=== PATIENT | female | born 1980 | race Two or more races ===

== ENCOUNTER 2025-06-05 21:57 | Emergency (ER) | payer MEDICAID, SELFPAY ==
[2025-06-05 22:01] VITALS: BMI 39.9
[2025-06-05 22:21] VITALS: BP 176/124; BP 185/135; PULSE 87; RESP 18; TEMP 36.9; O2SAT 97
[2025-06-05 23:34] LABS: Basophils # (Auto) 0.1 Thou/mm3 (0.0-0.2); Basophils % (Auto) 1 % (0-2.5); Eosinophils # (Auto) 0.2 Thou/mm3 (0.0-0.5); Eosinophils % (Auto) 2 % (0-10); Hematocrit 43.3 % (36.0-46.0); Hemoglobin 13.8 g/dL (12.0-16.0); Immature Granulocytes Auto 0.04 Thou/mm3 (0.00-0.00); Lymphocytes # (Auto) 3.9 Thou/mm3 (1.0-4.8); Lymphocytes % (Auto) 37 % (10-50); Mean Corpuscular HGB Conc 31.9 g/dl (31.0-37.0); Mean Corpuscular Hemoglobin 26.6 pg (25.0-35.0); Mean Corpuscular Volume 83 fL (80-100); Monocytes # (Auto) 0.7 Thou/mm3 (0.0-0.8); Monocytes % (Auto) 7 % (0-12); Neutrophils # (Auto) 5.6 Thou/mm3 (1.8-7.7); Neutrophils % (Auto) 53 % (37-80); Nucleated Red Blood Cell # 0.00 Thou/mm3 (0.00-0.00); Nucleated Red Blood Cell % 0 /100 WBC (0); Platelet Count 257 Thou/mm3 (140-440); RDW Standard Deviation 42.1 fL (36.4-46.3); Red Blood Count 5.19 Miln/mm3 (4.00-5.20); White Blood Count 10.6 Thou/mm3 (3.6-11.0)
[2025-06-05] MEDS: ONDANSETRON ODT 4 MG TABRAP PO (23:38)
--- NOTE | 2025-06-06 | XR_ITS ---
Examination: Abdomen sonogram, complete Date and time of exam: June 06, 2025 0052 hours INDICATIONS: Right upper abdominal pain beginning 3 days ago. Technique: Multiple real-time grayscale transabdominal sonographic images of the abdomen have been obtained. Findings: Absent gallbladder Normal common bile duct 0.3 cm Pancreatic head 2.6 cm Aorta not enlarged. Liver 20.3 cm fatty infiltration lobular contour Normal hepatopedal portal venous oh Patent IVC Right kidney 12.0 cm cortex 1.5 cm Left kidney 11.3 cm cortex 2.4 cm No hydronephrosis Spleen 10.7 cm IMPRESSION: Normal common bile duct Moderate hepatomegaly fatty infiltration, primary hepatocellular disease, no focal liver lesions
[2025-06-06 00:20] LABS: Alanine Aminotransferase 23 U/L (10-49); Albumin, Serum 4.6 gm/dL (3.5-5.0); Albumin/Globulin Ratio 1.4 (1.2-2.2); Alkaline Phosphatase 79 U/L (46-116); Amylase 33 U/L (30-118); Anion Gap 9 (7-16); Aspartate Amino Transferase 23 U/L (0-34); BUN/Creatinine Ratio 11 Ratio (12-20); Bilirubin,Total 0.8 mg/dL (0.3-1.2); Blood Urea Nitrogen 9 mg/dL (9-23); Calcium 10.2 mg/dL (8.3-10.6); Calcium (Corrected) 10.2 mg/dL (8.5-10.1); Carbon Dioxide 30.1 mMol/L (20.0-31.0); Chloride 105 mMol/L (98-107); Creatinine (Component) 0.8 mg/dL (0.6-1.3); Estimated Creatinine Clearance 107.8 mL/min (>60); Globulin 3.2 gm/dL (2.3-3.5); Glucose 114 mg/dL (74-106); Lipase 34 U/L (12-53); Magnesium 1.8 mg/dL (1.6-2.6); Osmolality,Calculated 286 (275-295); Phosphorous 3.3 mg/dL (2.4-5.1); Potassium 3.5 mMol/L (3.4-5.1); Sodium 144 mMol/L (136-145); Total Protein 7.8 gm/dL (5.7-8.2); eGFR > 60 See Note
--- NOTE | 2025-06-06 01:54 | PRELIM_ITS ---
Ultrasound Abdomen. June 06, 2025 0052 hours Clinical history: Abdominal Pain RUQ, Hx of Cholecystectomy Technique: Grayscale and color flow images of the abdomen are provided. Hepatic and portal veins were also imaged with color flow images. Comparison: No prior study is available for comparison. Findings: The liver is moderately enlarged, measuring 20.2 cm and demonstrates increased echogenicity. There is mild lobulated contour of the liver. No intrahepatic biliary ductal dilatation. The main portal vein is patent and demonstrates hepatopetal flow. The hepatic veins are patent to the extent visualized. The gallbladder is surgically absent. There is no abnormal fluid collection in the gallbladder fossa. The common bile duct is normal in caliber at 3 mm. No free fluid is demonstrated on the submitted images. The pancreas is unremarkable to the extent visualized. The right kidney measures 12 x 4.8 x 5.3 cm. The left kidney measures 11.3 x 4.6 x 4.2 cm. There is no hydronephrosis and the corticomedullary differentiation is maintained. The left kidney demonstrates lobulated contour, likely secondary to parenchymal scarring. The spleen is normal measuring 10.7 cm in length. The abdominal aorta and inferior vena cava to the extent visualized are within normal limits. No free fluid is noted on the submitted images. Impression: Moderate hepatomegaly with fatty infiltration of liver. Mild lobulated contour of the liver, concerning for cirrhosis. Recommend clinical and laboratory correlation. Status post-cholecystectomy without abnormal fluid collection in the gallbladder fossa. Other findings as described above. Report Electronically Signed By: Wang Rodriguez 06/06/2025 1:53:45 AM [EST]
[2025-06-06 02:19] LABS: Collection Type, Urine Clean Catch
[2025-06-06 02:38] LABS: Bacteria,Urine Rare; Bilirubin,Urine Negative (Negative); Blood,Urine Negative (Negative); Calcium Oxalate Crystals,Urine 2+; Clarity,Urine Turbid (Clear/Hazy); Color,Urine Yellow (Lt Yel-Yel); Culture Indicated,Urine Contaminated; Glucose, Urine Negative (Negative); Ketones,Urine Negative (Negative); Leukocyte Esterase,Urine Positive (Negative); Nitrite,Urine Negative (Negative); PH,Urine 6.0 (5.0-7.0); Protein,Urine 1+ (Neg - Trace); RBC,Urine 7 /hpf (0-3); Specific Gravity,Urine 1.025 (1.001-1.035); Squamous Epithelial Cell,Urine 13 /hpf (0-5); Urobilinogen,Urine Negative mg/dL (0.0-1.0); WBC,Urine 12 /hpf (0-5)
--- NOTE | 2025-06-06 02:40 | PD.EDADULT ---
ED General RME/HPI General Chief complaint: General Adult/Misc Complain Stated complaint: R SIDE GROIN PAIN /INJURY Time Seen by Provider: 06/05/25 22:55 Arrival date/time: 06/05/25 21:57 Related Data Home Medications ?Medication ?Instructions ?Recorded ?Confirmed amlodipine 10 mg tablet (Norvasc) 10 mg PO QDAY #0 tabs 04/30/17 01/13/20 aspirin 81 mg tablet,delayed 81 mg PO QDAY ##0 04/30/17 01/13/20 release (Aspir-) furosemide 20 mg tablet (Lasix) 20 mg PO QDAY #0 tabs 04/30/17 01/13/20 lisinopril 40 mg tablet 40 ml PO QDAY #0 tabs 04/30/17 01/13/20 oxybutynin chloride 5 mg tablet 5 mg PO QDAY #0 tabs 04/30/17 01/13/20 potassium chloride 8 mEq 8 meq PO QDAY ##0 04/30/17 01/13/20 capsule,extended release sertraline 100 mg tablet (Zoloft) 100 mg PO HS #0 tabs 04/30/17 01/13/20 Previous Rx's ?Medication ?Instructions ?Recorded albuterol sulfate 90 mcg/actuation 1 - 2 puff inhalation Q6HR PRN 10/24/17 aerosol inhaler (ProAir HFA) WHEEZING #1 inh loratadine 10 mg tablet (Claritin) 1 tab PO QDAY Allergies #30 tabs 10/24/17 cephalexin 500 mg tablet 1,000 mg (2 x 500 mg) PO BID #28 12/02/21 tabs cephalexin 500 mg capsule 500 mg PO BID 5 days #10 caps 06/06/25 Allergies Allergy/AdvReac Type Severity Reaction Status Date / Time No Known Allergies Allergy Verified 06/05/25 22:00 Review of Systems Review of Systems Systems Reviewed: All systems reviewed, normal except as documented Past Medical History Past Medical History CARDIAC: Positive Cardiac Disorders and Hypertension; Negative Congestive Heart Failure RESPIRATORY: Negative Chronic Obstructive Pulmonary Disease (COPD) or Asthma GASTROINTESTINAL: Positive Gastrointestinal Disorders and Gall Bladder Disease GENITOURINARY: Negative Renal Disease ENDOCRINE: Negative Diabetes Mellitus Type 1 or Diabetes Mellitus Type 2 HEMATOLOGIC: Negative Sickle Cell Disease PSYCHO/SOCIAL: Positive Recreational Drug Use, Depression and Anxiety Surgical History SURGICAL: Positive Section Social History SMOKING STATUS: Never smoker ED Exam Narrative Physical exam: A&O, afebrile and non-toxic appearing 44-year-old female, no acute distress. Lungs are clear, RRR, Abdomen is soft, positive tenderness in the right upper quadrant with positive Leahy sign. No right lower quadrant, left lower quadrant or left upper quadrant tenderness. No flank tenderness. No rebound or guarding. Bowel sounds are present. No CVA tenderness. Moves all extremities well. Course Course Course Narrative: Initial blood pressure was 185/135 and 176/124 on both arms. Pulse is 87, respirations 18 and nonlabored, temperature 98.5, O2 sat 97% on room air. CBC reveals a normal white count of 10.6, normal H&H and platelets. CMP reveals normal electrolytes, normal renal function with the exception of a mildly elevated glucose at 114, normal phosphorus and magnesium, normal LFTs. Amylase and lipase are also normal at 33/34. Urinalysis reveals turbid urine with 1+ protein, positive leukocyte esterase, 7 RBCs, 12 WBCs, 13 epithelial cells and 2+ calcium oxalate crystals. Urine drug screen is positive for amphetamines. Abdominal US Reveals: Moderate hepatomegaly with fatty infiltration of liver. Mild lobulated contour of the liver, concerning for cirrhosis. Recommend clinical and laboratory correlation. Status post-cholecystectomy without abnormal fluid collection in the gallbladder fossa. Patient was given metoprolol tartrate 25 mg p.o. x 1 as well as clonidine 0.2 mg p.o. x 1. She was also started on oral antibiotics for her UTI, cephalexin 500 mg p.o. x 1. Quality Measures none Orders Category Date Time Status IV [Insert IV] NOW Care 06/05/25 23:12 Active NPO STAT Care 06/05/25 23:12 Active US abdomen Stat Exams 06/06/25 00:00 Taken Amylase Stat Lab 06/05/25 23:25 Completed CBC Stat Lab 06/05/25 23:25 Completed Comprehensive Metabolic Panel Stat Lab 06/05/25 23:25 Completed Drug Screen,Urine Stat Lab 06/06/25 02:15 Completed Lipase Stat Lab 06/05/25 23:25 Completed Magnesium Stat Lab 06/05/25 23:25 Completed Phosphorous Stat Lab 06/05/25 23:25 Completed Urinalysis, C/S if Indicated Stat Lab 06/06/25 02:15 Completed Metoprolol Tartrate [Lopressor] Med 06/06/25 04:02 Once 25 mg PO X1 ONE Ondansetron Odt [Zofran Odt] Med 06/05/25 23:19 Discontinued 4 mg PO X1 ONE cephALEXin [Keflex] Med 06/06/25 04:02 Once 500 mg PO X1 ONE cloNIDine HCL [Catapres] Med 06/06/25 04:02 Once 0.2 mg PO X1 ONE Vital Signs Vital signs: Vital Signs Temperature 98.5 F 06/05/25 22:21 Pulse Rate 87 06/05/25 22:21 Respiratory Rate 18 06/05/25 22:21 Blood Pressure 185/135 H 06/05/25 22:21 Pulse Oximetry (%) 97 06/05/25 22:21 Oxygen Delivery Method Room Air 06/05/25 22:21 Discharge Plan Plan Patient Disposition: HOME (Self Care) Discharge Disposition comment: Stable Prescriptions/Referrals Prescriptions/Med Rec: New cephalexin 500 mg capsule 500 mg PO BID 5 Days Qty: 10 0RF No Action potassium chloride 8 MEQ capsule, extended release 8 meq PO QDAY Qty: 0 sertraline [Zoloft] 100 MG tablet 100 mg PO HS Qty: 0 aspirin [Aspir-81] 81 mg Tablet,Delayed Release (Dr/Ec) 81 mg PO QDAY Qty: 0 amlodipine [Norvasc] 10 MG tablet 10 mg PO QDAY Qty: 0 furosemide [Lasix] 20 MG tablet 20 mg PO QDAY Qty: 0 oxybutynin chloride 5 MG tablet 5 mg PO QDAY Qty: 0 lisinopril 40 MG tablet 40 ml PO QDAY Qty: 0 albuterol sulfate [ProAir HFA] 8.5 GM HFA aerosol inhaler 1 - 2 puff Inhalation Q6HR PRN (Reason: WHEEZING) Qty: 1 0RF Rx Instructions: Please give and use spacer loratadine [Claritin] 10 MG tablet 1 tab PO QDAY Qty: 30 0RF cephalexin 500 mg tablet 1,000 mg PO BID Qty: 28 0RF Referrals: Gurinder Reddy MD [Primary Care Provider] - In 1 week Problem List Clinical Impression: UTI (urinary tract infection), Hypertension, Fatty liver disease, nonalcoholic Patient/Caregiver Discharge Instructions Education Materials: Nonalcoholic Fatty Liver ..., ED Hypertension, Established, ED CYSTITIS Female Adult Additional Instructions: Take the antibiotics as prescribed and complete the course even though you may be feeling better. Take your blood pressure medications as previously prescribed, as your blood pressure is dangerously high, and not very well-controlled Follow-up with your primary care physician in 24 to 48 hours. Return to the ED for any new or worsening symptoms. Print Language: Sammarinese Stand Alone Forms: Rubina Award Info., Patient Portal Info Letter PA/MASTER COOK Supervising Physician PA/MASTER COOK Supervising Physician: Dr Nadine DEJESUS Narrative [facility] hospital course: Symptoms, exam and diagnostic studies are consistent with: #1 UTI, #2 fatty liver disease, #3 elevated blood pressure likely secondary to urine tox screen positive for amphetamine. She was given metoprolol tartrate 25 mg p.o., clonidine 0.2 mg p.o. for her significantly elevated blood pressure, and cephalexin 500 mg p.o. for her UTI. Patient was discharged home in stable condition. Patient/family advised to follow-up with their PCP in 24-48 hours. Encouraged to return to the ED for any new or worsening symptoms. Clinical Information Provided by patient Medical Records Reviewed [facility] Meds/Rx Considered, not Ordered None Describe details: N/A Labs/Rad/Tests considered, not Ordered None Describe details: N/A Chronic Illness/Social Conditions which may negatively complicate care or outcome(s)-explain: ETOH/drugs/substance abuse and other (Hypertension, depression, allergies) EKG EKG not done EKG Interpretation narrative: N/A Lab Interpretation Labs: interpreted by fl Lab(s) interpretation(s): As noted above Imaging Imaging interpretation: see narrative above Radiology reports / interpretation(s): As noted above Medication Administration(s) Medication Administration History Cephalexin HCl (Cephalexin 250 Mg Capsule) 500 mg PO X1 ONE Stop: 06/06/25 04:03 Clonidine (Clonidine Hcl 0.1 Mg Tablet) 0.2 mg PO X1 ONE Stop: 06/06/25 04:03 Metoprolol Tartrate (Metoprolol Tartrate 25 Mg Tablet) 25 mg PO X1 ONE Stop: 06/06/25 04:03 Discontinued Medications Ondansetron HCl (Ondansetron Odt 4 Mg Tabrap) 4 mg PO X1 ONE; Protocol Stop: 06/05/25 23:20 Last Admin: 06/05/25 23:38 Dose: 4 mg Documented By: DAGMAR As noted above Diagnosis Differential diagnosis: Groin strain, appendicitis, RUQ abdominal pain, UTI, renal calculi Most likely dx, and/or detailed dx discussion: UTI, fatty liver disease, elevated blood pressure, amphetamine abuse Dispositon Disposition: Discharge Home
[2025-06-06 03:17] LABS: Amphetamine/Methamp Scrn,U Positive (Negative); Barbiturate Screen,Urine Negative (Negative); Benzodiazepines Screen,Urine Negative (Negative); Benzoylecgonine Screen, Ur Negative (Negative); Fentanyl Screen,Urine Negative (Negative); Opiate Screen,Urine Negative (Negative); THC Screen,Urine Negative (Negative)
[2025-06-06 04:10] VITALS: BP 169/114; PULSE 91; RESP 17; TEMP 36.8; O2SAT 97
[2025-06-06 04:26] VITALS: BP 169/114; PULSE 91
[2025-06-06 04:28] VITALS: BP 169/114; PULSE 91
[2025-06-06] MEDS: METOPROLOL TARTRATE 25 MG TABLET PO (04:28)
== END 2025-06-06 04:31 | disposition home or self-care (01) ==
PROVIDERS: Physician Assistant; Emergency Provider Emergency Medicine; PCP Family Medicine
DX: N39.0 Urinary tract infection, site not specified (principal); I10 Essential (primary) hypertension; K76.0 Fatty (change of) liver, not elsewhere classified
CPT/HCPCS: 36415; 76700; 80053; 80307; 81001; 82150; 83690; 83735; 84100; 85025; 99283; Q0162; A9270